=== PATIENT | male | born 1970 | race African-American/Black ===

== ENCOUNTER 2022-11-01 15:40 | Inpatient (IN) | payer OTHER ==
[2022-11-01 16:22] VITALS: BMI 22.1
[2022-11-01] MEDS ORDERED: BENZOCAINE/MENTHOL (CHLORASEPTIC ) LOZENGE MM PRN (16:48)
[2022-11-01] MEDS ORDERED: guaiFENesin 600 MG TABLET.ER (FP) PO PRN (16:48)
[2022-11-01] MEDS ORDERED: POLYETHYLENE GLYCOL (HEALTHYLAX) 3350 17 GM PACKET PO PRN (16:48)
[2022-11-01] MEDS ORDERED: MAGNESIUM HYDROX 2400MG/30ML ORAL SUSPENSION 30 ML CUP PO PRN (16:48)
[2022-11-01] MEDS ORDERED: BENZONATATE 200 MG CAPSULE PO PRN (16:48)
[2022-11-01] MEDS ORDERED: NICOTINE POLACRILEX 2 MG GUM BUC PRN (16:48)
[2022-11-01] MEDS ORDERED: ACETAMINOPHEN 325 MG TABLET (FP) PO PRN (16:48)
[2022-11-01] MEDS ORDERED: MELATONIN 5 MG TABLETS PO PRN (16:48)
[2022-11-01] MEDS ORDERED: LOPERAMIDE HCL 2 MG CAPSULE PO PRN (16:48)
[2022-11-01] MEDS ORDERED: IBUPROFEN 600 MG TABLET (FP) PO PRN (16:48)
[2022-11-01] MEDS ORDERED: BISMUTH SUBSALICYLATE 524 MG/30 ML PO PRN (16:48)
[2022-11-01] MEDS ORDERED: IBUPROFEN 400 MG TABLET (FP) PO PRN (16:48)
[2022-11-01] MEDS ORDERED: MAG HYDROX/AL HYDROX/SIMETH 30 ML UNIT-DOSE CUP PO PRN (16:48)
[2022-11-01] MEDS ORDERED: P-EPHED 60MG/TRIPROLIDI 2.5MG TABLET PO PRN (16:48)
[2022-11-01] MEDS ORDERED: ONDANSETRON *ODT* 4 MG TABLET SL PRN (16:48)
[2022-11-01] MEDS ORDERED: DICYCLOMINE HCL 10 MG CAPSULE PO PRN (16:48)
[2022-11-01] MEDS ORDERED: hydrOXYzine PAMOATE 25 MG CAPSULE (FP) PO PRN (16:48)
[2022-11-01] MEDS ORDERED: cloNIDine HCL 0.1 MG TABLET PO ONE (19:47)
[2022-11-01] MEDS ORDERED: amLODIPine BESYLATE 5 MG TABLET (FP) PO ONE (21:58)
[2022-11-01] MEDS: THIAMINE HCL 100 MG TABLET (FP) PO SCH (22:25)
[2022-11-02] MEDS: HYDROCHLOROTHIAZIDE 25 MG TABLET (FP) PO SCH (07:48)
[2022-11-02] MEDS: amLODIPine BESYLATE 5 MG TABLET (FP) PO SCH (07:48)
[2022-11-02] MEDS ORDERED: cloNIDine HCL 0.1 MG TABLET PO ONE (08:00)
[2022-11-02] MEDS: PRENATAL VITAMINS W/ FOLIC ACID TABLET (FP) PO SCH (10:29)
[2022-11-02 11:59] LABS: POTASSIUM 4.4 mmol/L (3.5-5.1)
[2022-11-02 12:04] LABS: HEMATOCRIT 38.7 % (35.4-49); HEMOGLOBIN 13.4 GM/dL (11.7-16.9); MCH 30.7 pg (25.7-33.7); MCHC 34.6 g/dl (32.0-35.9); MEAN CELL VOLUME 88.9 fl (80-96); MEAN PLT VOLUME 9.1 fl (7.5-11.1); PLATELET COUNT 309 10^3/uL (134-434); RBC 4.35 M/mm3 (4.00-5.60); WHITE BLOOD COUNT 7.4 K/mm3 (4.0-10.0)
[2022-11-02 12:14] LABS: BLOOD UREA NITROGEN 13.3 mg/dL (7-18); CALCIUM 8.9 mg/dL (8.5-10.1)
[2022-11-02 12:15] LABS: ALBUMIN 2.8 g/dl (3.4-5.0)
[2022-11-02 12:19] LABS: BILIRUBIN,TOTAL 0.6 mg/dL (0.2-1); TOT PROT 6.5 g/dl (6.4-8.2)
[2022-11-02] MEDS: THIAMINE HCL 100 MG TABLET (FP) PO SCH (22:22)
[2022-11-03 07:41] VITALS: RESP 16
[2022-11-03 09:44] VITALS: BP 135/84; PULSE 76; TEMP 98.5
[2022-11-03] MEDS: PRENATAL VITAMINS W/ FOLIC ACID TABLET (FP) PO SCH (10:25)
[2022-11-03] MEDS: amLODIPine BESYLATE 5 MG TABLET (FP) PO SCH (10:25)
[2022-11-03] MEDS: HYDROCHLOROTHIAZIDE 25 MG TABLET (FP) PO SCH (10:25)
== END 2022-11-03 13:19 | disposition home or self-care (01) | DRG 774 ==
LOC: YASAS 15:40 → Y3N 17:41
PROVIDERS: ADMIT Allergy & Immunology; ATTEND Surgery
PROC: HZ2ZZZZ Detoxification Services for Substance Abuse Treatment (ICD-10-PCS; principal; 2022-11-01)
DX: F14.20 Cocaine dependence, uncomplicated (principal); F10.10 Alcohol abuse, uncomplicated; F17.210 Nicotine dependence, cigarettes, uncomplicated; I10 Essential (primary) hypertension
CPT/HCPCS: 36415; 80053; 85027; 86780; 87811; C9803-CS; U0003; U0005

== ENCOUNTER 2024-10-29 09:42 | Inpatient (IN) | payer OTHER ==
[2024-10-29 10:06] VITALS: BMI 23.6
[2024-10-29] MEDS ORDERED: BENZONATATE 200 MG CAPSULE PO PRN (10:49)
[2024-10-29] MEDS ORDERED: IBUPROFEN 600 MG TABLET (FP) PO PRN (10:49)
[2024-10-29] MEDS ORDERED: METHOCARBAMOL 500 MG TABLET PO PRN (10:49)
[2024-10-29] MEDS ORDERED: ONDANSETRON *ODT* 4 MG TABLET SL PRN (10:49)
[2024-10-29] MEDS ORDERED: POLYETHYLENE GLYCOL (HEALTHYLAX) 3350 17 GM PACKET PO PRN (10:49)
[2024-10-29] MEDS ORDERED: IBUPROFEN 400 MG TABLET (FP) PO PRN (10:49)
[2024-10-29] MEDS ORDERED: ACETAMINOPHEN 325 MG TABLET (FP) PO PRN (10:49)
[2024-10-29] MEDS ORDERED: MAG HYDROX/AL HYDROX/SIMETH 30 ML UNIT-DOSE CUP PO PRN (10:49)
[2024-10-29] MEDS ORDERED: DICYCLOMINE HCL 10 MG CAPSULE PO PRN (10:49)
[2024-10-29] MEDS ORDERED: chlordiazePOXIDE HCL 25 MG CAPSULE PO PRN (10:49)
[2024-10-29] MEDS ORDERED: BISMUTH SUBSALICYLATE 524 MG/30 ML PO PRN (10:49)
[2024-10-29] MEDS ORDERED: LOPERAMIDE HCL 2 MG CAPSULE PO PRN (10:49)
[2024-10-29] MEDS ORDERED: BENZOCAINE/MENTHOL (CHLORASEPTIC ) LOZENGE MM PRN (10:49)
[2024-10-29] MEDS ORDERED: hydrOXYzine PAMOATE 25 MG CAPSULE (FP) PO PRN (10:49)
[2024-10-29] MEDS ORDERED: NICOTINE POLACRILEX 2 MG GUM BUC PRN (10:49)
[2024-10-29] MEDS ORDERED: NALOXONE (NARCAN) HCL 4 MG/0.1 ML SPRAY NS PRN (10:49)
[2024-10-29] MEDS ORDERED: guaiFENesin 600 MG TABLET.ER (FP) PO PRN (10:49)
[2024-10-29] MEDS ORDERED: MAGNESIUM HYDROX 2400MG/30ML ORAL SUSPENSION 30 ML CUP PO PRN (10:49)
[2024-10-29] MEDS ORDERED: amLODIPine BESYLATE 5 MG TABLET (FP) ONE (11:21)
[2024-10-29] MEDS ORDERED: HYDROCHLOROTHIAZIDE 12.5 MG CAPSULE (FP) ONE (11:22)
[2024-10-29] MEDS: HYDROCHLOROTHIAZIDE 12.5 MG CAPSULE (FP) PO SCH (11:23)
[2024-10-29] MEDS: amLODIPine BESYLATE 5 MG TABLET (FP) PO SCH (11:23)
[2024-10-29] MEDS: NALTREXONE HCL 50 MG TABLET PO ONE (11:45)
[2024-10-29] MEDS: chlordiazePOXIDE HCL 25 MG CAPSULE PO SCH (17:09)
[2024-10-29] MEDS: THIAMINE 100 MG TABLET PO SCH (22:12)
[2024-10-29] MEDS: ATORVASTATIN CA 40 MG TABLET (FP) PO SCH (22:12)
[2024-10-29] MEDS: MELATONIN 5 MG TABLETS PO SCH (22:12)
[2024-10-29] MEDS: MIRTAZAPINE 15 MG TABLET (FP) PO SCH (22:12)
[2024-10-30] MEDS: CLOPIDOGREL BISULFATE 75 MG TABLET (FP) PO SCH (10:23)
[2024-10-30] MEDS: PRENATAL VITAMINS W/ FOLIC ACID TABLET (FP) PO SCH (10:24)
[2024-10-30] MEDS: NALTREXONE HCL 50 MG TABLET PO SCH (10:25)
[2024-10-30 11:17] LABS: HEMOGLOBIN 12.5 g/dL (13.7-17.5); MCHC 31.3 g/dl (32.3-36.5); MEAN CELL VOLUME 94.1 fl (79.0-92.2); MEAN PLT VOLUME 10.7 fl (9.4-12.4); PLATELET COUNT 382 x10^3/uL (163-337); RDW 14.5 % (12.2-16.1)
[2024-10-30 11:42] LABS: POTASSIUM 4.9 mmol/L (3.5-5.1)
[2024-10-30 11:47] LABS: CALCIUM 9.9 mg/dL (8.5-10.1)
[2024-10-30 11:48] LABS: ALBUMIN 3.2 g/dl (3.4-5.0); BLOOD UREA NITROGEN 12.3 mg/dL (7-18)
[2024-10-30 11:49] LABS: CREATININE 1.1 mg/dL (0.55-1.3)
[2024-10-30 11:51] LABS: BILIRUBIN,TOTAL 0.2 mg/dL (0.2-1); TOT PROT 6.9 g/dl (6.4-8.2)
[2024-10-31] MEDS: chlordiazePOXIDE HCL 25 MG CAPSULE PO SCH (05:43)
[2024-10-31 08:46] VITALS: BP 132/73; PULSE 72; RESP 18; TEMP 98.3
[2024-10-31] MEDS ORDERED: chlordiazePOXIDE HCL 10 MG CAPSULE PO SCH (14:00)
[2024-11-01] MEDS ORDERED: chlordiazePOXIDE HCL 10 MG CAPSULE PO PRN
[2024-11-01] MEDS ORDERED: chlordiazePOXIDE HCL 10 MG CAPSULE PO SCH (05:00)
[2024-11-01] MEDS ORDERED: chlordiazePOXIDE HCL 10 MG CAPSULE PO ONE (06:00)
[2024-11-02] MEDS ORDERED: chlordiazePOXIDE HCL 10 MG CAPSULE PO SCH (05:00)
[2024-11-03] MEDS ORDERED: chlordiazePOXIDE HCL 10 MG CAPSULE PO ONE (05:00)
== END 2024-10-31 10:15 | disposition left against medical advice (07) | DRG 770 ==
LOC: YASAS 09:42 → Y3N 11:14
PROVIDERS: ADMIT Allergy & Immunology; ATTEND Allergy & Immunology
PROC: HZ2ZZZZ Detoxification Services for Substance Abuse Treatment (ICD-10-PCS; principal; 2024-10-29)
DX: F10.230 Alcohol dependence with withdrawal, uncomplicated (principal); F14.20 Cocaine dependence, uncomplicated; F12.20 Cannabis dependence, uncomplicated; F17.210 Nicotine dependence, cigarettes, uncomplicated; G47.00 Insomnia, unspecified; I10 Essential (primary) hypertension; I73.9 Peripheral vascular disease, unspecified; Z95.828 Presence of other vascular implants and grafts; Z59.01 Sheltered homelessness
CPT/HCPCS: 36415; 80053; 80305; 80307; 85027; 86780; 93005; 93010